=== PATIENT | female | born 1935 | race Caucasian/White ===

== ENCOUNTER → 2017-04-09 08:43 | Outpatient (CLI) | payer MEDICARE, BC ==
[2015-05-22 14:13] VITALS: BMI 33.5
[~2017-04-09 08:43] MED LIST: ALDACTONE25 MG PO; BYSTOLIC20 MG PO; CARDURA4 MG PO; CARDURA8 MG PO; CATAPRES-T1 PATCH.WK TD; CATAPRES0.2 MG PO; LASIX40 MG PO; MINOCIN100 MG PO; MUCINEX600 MG PO; PRINIVIL20 MG PO; ZPAK PO; [UNRECOGNIZED DRUG - OTHER]
== END | disposition home or self-care (01) ==
LOC: D.US 08:30
DX: N18.3 Chronic kidney disease, stage 3 (moderate) (principal)

== ENCOUNTER → 2017-05-22 15:18 | Outpatient (CLI) | payer MEDICARE, BC ==
[2015-05-22 14:13] VITALS: BMI 33.5
== END | disposition home or self-care (01) ==
LOC: D.CT 15:18
DX: R51 Headache (principal)

== ENCOUNTER 2017-11-10 15:55 | Inpatient (IN) | payer MEDICARE, BC ==
[~2017-11-10] VITALS: Ht 176.5 cm; Wt 105.6 kg
--- NOTE | ~2017-11-10 | DS ---
PATIENT:MARSHAL CUNNINGHAM :35 MEDICAL RECORD: [id number] DISCHARGE SUMMARY ADMISSION DATE: 11/10/17 DISCHARGE DATE: 11/13/17 DISCHARGE DIAGNOSES: Acute exacerbation of asthma, bronchitis, febrile illness, hyperkalemia, hypertension, right lower lobe pneumonia. HOSPITAL COURSE: An 82-year-old female with a history of asthma, admitted per the Emergency Room for 48 hours of increasing loss of energy, sputum production that was yellow-green thick and increasing dyspnea. O2 sat was 93% on 2 liters. Chest x-ray showed no acute infiltrates. She was admitted, placed on IV antibiotics, pulmonary toilet, and IV steroids. The patient gradually improved. The urine returned showing greater than 100,000 colony count. Her sats improved. Potassium was replaced to 4.1. Blood cultures were negative for sepsis. Chest x-ray showed persistent blunting of the left costophrenic angle, thought to be a small left pleural effusion versus scar, increase in airspace disease in the right lower lobe concerning for evolving pneumonia. The patient gradually improved, was afebrile, and maintaining her O2 sat 94% on room air. She was discharged in improving condition on 11/13/2017. DISCHARGE MEDICATIONS: Lasix 80 mg b.i.d., doxazosin 8 mg daily, DuoNeb updrafts q. 6 hours and q. 4 hours p.r.n., Aldactone 50 mg at bedtime, Mucinex 600 mg b.i.d., doxycycline 100 mg p.o. b.i.d. for 7 days and discontinue, Flonase nasal spray 2 sprays each nostril daily, gabapentin 100 mg p.o. at bedtime, triamcinolone acetonide lotion to skin rash daily, famotidine 20 mg b.i.d. Ventolin HFA inhaler for p.r.n. rescue. DIET: Low sodium. ACTIVITY: Progress as tolerated. FOLLOWUP: Return to clinic to see me in 1 week with chest x-ray. TRANSINT:[id number] Voice Confirmation ID: [id number] DOCUMENT ID: [id number] RIKI GRIJALVA MD at 0820 CC: [id number] DICTATION DATE: 01/11/18 1238 RN HEMODIALYSIS CHARGE: 01/12/18 0457 DIS IN 11/13/17 [facility] [address] [facility] [address]
--- NOTE | ~2017-11-10 | HP ---
PATIENT: MARSHAL CUNNINGHAM MEDICAL RECORD: [id number] ACCOUNT: [id number] LOCATION:[address] : 35 ADMISSION DATE: 11/10/17 HISTORY AND PHYSICAL EXAMINATION REASON FOR ADMISSION: Fatigue with increasing cough. HISTORY OF PRESENT ILLNESS: The patient is an 82-year-old female with history of asthma and hypertension. She states for the last 2 days, she has just felt fatigued with low-grade fever. She had little energy and stated in bed for the last 48 hours. She had increasing cough and yellow sputum production, came to the Emergency Room for this reason. She complained of generalized weakness and had had upper respiratory tract infection off and on for the last month. She denied chest pain. Upon presentation to the ER, she had temperature of 100.6 was mildly tachypneic. O2 sat was 93% on 2 liters. Her chest x-ray showed no acute infiltrates, but due to symptoms, she was admitted by the ER physician. PAST MEDICAL HISTORY: Asthma; history of KIMBERLY INHIBITOR-induced anaphylaxis, requiring intubation; essential hypertension; chronic dermatitis; chronic renal insufficiency; renal cyst; community-acquired pneumonia, right lower lobe in 2015; history of urinary tract infections; left atrial enlargement; moderate tricuspid and mild aortic insufficiency; IBS; history of negative arteriogram for renal artery stenosis; history of coronary artery disease post-PTCA. FAMILY HISTORY: The parents due to cardiovascular and lung disease. SURGICAL HISTORY: Remote hysterectomy, bilateral hip replacements times 4. ALLERGIES: KIMBERLY INHIBITORS, AVELOX, CLONIDINE, CODEINE, SULFA, PROCARDIA, PENICILLIN, MACROBID, KEFLEX. SOCIAL HISTORY: She is , nonsmoker, nondrinker. MEDICATION LIST: Consistent with DuAnselmob anafts q.6 hours p.r.n. wheezing, Flonase nasal spray 2 sprays each nostril daily, gabapentin 100 mg p.o. at h.s., doxazosin 8 mg daily, furosemide 80 mg q.a.m., triamcinolone acetate lotion to skin rash daily, famotidine 25 mg b.i.d., Ventolin HFA 90 mcg inhaler p.r.n. REVIEW OF SYSTEMS: GENERAL: Fatigued with low-grade fever for 2 days. HEENT: No recent visual change, sinus congestion, or sore throat. RESPIRATORY: She has had cough with yellow-green sputum, not dyspneic per se. No chest pain. CARDIAC: No palpitations, PND, orthopnea. GASTROINTESTINAL: No nausea, vomiting, change in stools or blood per rectum. GENITOURINARY: No incontinence. She has had some mild dysuria. GYNECOLOGIC: No vaginal bleeding. ENDOCRINE: Denies polyuria, polydipsia, heat or cold intolerance. NEUROLOGIC: No history of stroke, TIA, vascular headaches, or seizures. INTEGUMENT: Chronic dermatitis to her lower extremities. Lymphedema unchanged. PHYSICAL EXAMINATION: VITAL SIGNS: Temperature is 100.6 Fahrenheit orally, pulse 92 and regular, respirations are 20, blood pressure 141/64, sat 93% on 2 liters. Height is 5 HISTORY AND PHYSICAL [id number] MARSHAL CUNNINGHAM feet 9 inches, weight of 229 pounds or 103.8 kilos. GENERAL: Alert and oriented, in no acute distress. EYES: Clear. Oropharynx shows somewhat dryness of the mucous membranes. Nose with boggy nasal turbinates are pale. NECK: Supple, without bruits, JVD. CHEST: She has wheezes in the upper lobes, right greater than left on forced expiration. No rales. HEART: Regular rate and rhythm. ABDOMEN: Soft, mildly obese, nontender. EXTREMITIES: Chronic 2+ pretibial edema of the knees. 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 NEUROLOGICAL: Oriented to person, place, and time. Cranial nerves grossly intact. Gait was not tested. LABORATORY WORK: Shows a white count of 17,200, H&H of 14 and 42 respectively. Electrolytes are normal. Anion gap is elevated at 16. BUN and creatinine are 15 and 1.1. GFR is 58. Glucose 120. Bilirubin is 1.55. IMAGING: Chest x-ray shows no acute changes. UA shows 5-10 white and red cells with bacteria. ASSESSMENT: 1. Exacerbation of asthma with bronchitis. 2. Febrile illness. 3. Hypertension. 4. Pyuria. 5. History of CAD. 6. History of left atrial enlargement. 7. Neuropathy. PLAN: The patient is admitted for pulmonary toilet, IV doxycycline currently because of her multiple drug allergies. SHE IS ALSO ALLERGIC TO BIAXIN, which would preclude us using Zithromax at this time. Further workup pending clinical course. Her urine culture was not obtained by the ER physician. I have ordered that despite having one dose of doxycycline. TRANSINT:[id number] Voice Confirmation ID: [id number] DOCUMENT ID: [id number] RIKI GRIJALVA MD at 0735 CC: [id number] DICTATION DATE: 11/11/17 0848 PICKLE SOLUTION MAKER: 11/11/17 0932 ADM [place] [id number] [place] [id number]
[2017-11-10 17:03] LABS: APPEARANCE SLT CLOUDY (CLEAR); BILIRUBIN NEGATIVE (NEGATIVE); COLOR YELLOW (YELLOW); GLUCOSE NEGATIVE (NEGATIVE); KETONE NEGATIVE (NEGATIVE); NITRITE POSITIVE (NEGATIVE); PROTEIN TRACE mg/dL (NEGATIVE); SPECIFIC GRAVITY 1.015 (1.005-1.020); UROBILINOGEN NORMAL (NORMAL)
[2017-11-10 17:04] LABS: RED CELLS - URINE 0-5 /hpf (0-5)
[2017-11-10 17:05] LABS: BACTERIA MODERATE /hpf (NONE SEEN)
[2017-11-10 17:13] LABS: BASOPHILS 0.2 % (0-2); EOSINOPHILS 1.6 % (0-7); HEMATOCRIT 42.2 % (36.0-48.0); HEMOGLOBIN 14.4 g/dL (12-16); IMMATURE GRANULOCYTES 0.3 % (0-5); LYMPHOCYTES 14.8 % (15-50); MCH 33.7 pg (26.0-34.0); MCHC 34.1 g/dL (31.0-37.0); MCV 98.8 fL (80.0-100.0); MEAN PLATELET VOLUME 10.8 fL (7.4-10.4); MONOCYTES 11.6 % (2-11); NEUTROPHILS 71.5 % (40-80); RBC 4.27 10x6/uL (4.00-5.40); RDW 14.1 % (11.5-14.5); WBC 17.2 10x3/uL (4.8-10.8)
[2017-11-10 17:28] LABS: PLATELET COUNT 192 10x3/uL (130-400)
[2017-11-10 17:33] LABS: ALBUMIN 2.9 g/dL (3.4-5.0); ANION GAP 16.1 mmol/L (8-16); BILIRUBIN - TOTAL 1.55 mg/dL (0.2-1.3); CALCIUM 8.9 mg/dL (8.5-10.1); CREATININE - SERUM 1.1 mg/dL (0.6-1.3); POTASSIUM - SERUM 4.1 mmol/L (3.5-5.1); PROTEIN - SERUM 7.1 g/dL (6.4-8.2)
[2017-11-10 20:00] VITALS: BP 175/59
[2017-11-10] MEDS ORDERED: LASIX80 MG PO (20:27)
[2017-11-10] MEDS ORDERED: PROVENTIL/2.5 MG/3 M INH (20:39)
[2017-11-10 23:48] VITALS: Ht 176.5 cm; Wt 105.6 kg
[2017-11-11 08:24] VITALS: BP 141/66
[2017-11-11 12:35] VITALS: BP 119/54
[2017-11-11 15:47] VITALS: BP 123/57
[2017-11-11 20:00] VITALS: BP 115/44
[2017-11-12] VITALS: BP 139/49
[2017-11-12 06:14] LABS: BASOPHILS 0.4 % (0-2); EOSINOPHILS 3.4 % (0-7); HEMATOCRIT 36.1 % (36.0-48.0); HEMOGLOBIN 12.2 g/dL (12-16); IMMATURE GRANULOCYTES 0.2 % (0-5); LYMPHOCYTES 23.2 % (15-50); MCH 33.7 pg (26.0-34.0); MCHC 33.8 g/dL (31.0-37.0); MCV 99.7 fL (80.0-100.0); MEAN PLATELET VOLUME 11.1 fL (7.4-10.4); MONOCYTES 14.2 % (2-11); NEUTROPHILS 58.6 % (40-80); PLATELET COUNT 209 10x3/uL (130-400); RBC 3.62 10x6/uL (4.00-5.40); RDW 14.3 % (11.5-14.5)
[2017-11-12 06:35] LABS: WBC 11.5 10x3/uL (4.8-10.8)
[2017-11-12 06:44] LABS: CALCIUM 8.5 mg/dL (8.5-10.1); CARBON DIOXIDE 24.8 mmol/L (21.0-32.0); POTASSIUM - SERUM 3.8 mmol/L (3.5-5.1)
[2017-11-12 08:40] VITALS: BP 152/71
[2017-11-12 12:48] VITALS: BP 124/70
[2017-11-12 16:15] VITALS: BP 143/56
[2017-11-12 20:04] VITALS: BP 141/82
[2017-11-13 00:37] VITALS: BP 129/69
[2017-11-13 06:21] VITALS: BP 137/66
[2017-11-13 08:50] VITALS: BP 137/70
[2017-11-13 12:03] VITALS: BP 121/47
[2017-11-13 15:28] VITALS: BP 139/47
[2017-11-13] MEDS ORDERED: IPRAT-ALBUT 0.5-3 ML INH (16:39)
[2017-11-13] MEDS ORDERED: MUCINEX600 MG PO (16:39)
[2017-11-13] MEDS ORDERED: VIBRAMYCIN 100100 MG PO (16:45)
[2017-11-13] MEDS ORDERED: GABAPENTIN100 MG PO (16:47)
[2017-11-13] MEDS ORDERED: PEPCID AC20 MG PO (16:47)
[2018-01-12] MEDS ORDERED: ORAPRED ODT10 MG/TAB PO (10:45)
[2018-01-12] MEDS ORDERED: ACETAMINOPHEN500 M1 PO (10:46)
== END 2017-11-13 19:10 | disposition home or self-care (01) | DRG 202 ==
LOC: D.ER 15:55 → D.M2 18:50 → D.EDHOLD 18:50 → D.M2 19:48
PROVIDERS: Emergency Medicine; Family Medicine
DX: J45.901 Unspecified asthma with (acute) exacerbation (principal); N39.0 Urinary tract infection, site not specified; E87.6 Hypokalemia; I12.9 Hypertensive chronic kidney disease with stage 1 through stage 4 chronic kidney disease, or unspecified chronic kidney disease; N18.9 Chronic kidney disease, unspecified; G62.9 Polyneuropathy, unspecified; I25.10 Atherosclerotic heart disease of native coronary artery without angina pectoris; I34.0 Nonrheumatic mitral (valve) insufficiency; L30.9 Dermatitis, unspecified; Z95.5 Presence of coronary angioplasty implant and graft

== ENCOUNTER 2018-01-13 07:00 | Day surgery (SDC) | payer MEDICARE, BC ==
[2018-01-12 12:27] LABS: HEMATOCRIT 46.6 % (36.0-48.0); HEMOGLOBIN 15.8 g/dL (12-16); MCH 34.9 pg (26.0-34.0); MCHC 33.9 g/dL (31.0-37.0); MCV 102.9 fL (80.0-100.0); MEAN PLATELET VOLUME 11.4 fL (7.4-10.4); RBC 4.53 10x6/uL (4.00-5.40); RDW 14.9 % (11.5-14.5); WBC 10.6 10x3/uL (4.8-10.8)
[2018-01-13] VITALS (14 sets, daily range): BP systolic 111–176; BP diastolic 57–88; Ht 175.3 cm; Wt 106.6 kg
[~2018-01-13] VITALS: Ht 175.3 cm; Wt 106.6 kg
--- NOTE | ~2018-01-13 | OP ---
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 SURGEON: Yajaira Laboy MD PROCEDURE: Anterior cervical discectomy and fusion with removal of osteophytes at C5-C6 and C6-C7, anterior cervical plate and screws with [employer] hardware, PEEK interbody cages by bone stem cell, allograft, removal of osteophytes at C5-C6 and C6-C7 with spinal cord decompression. DESCRIPTION AND TECHNIQUE: After induction of general endotracheal anesthesia, the patient was positioned supine on the operating table. Neck was prepped and draped in usual sterile fashion. Fluoroscopic x-ray and freer localized the C5-C6 interspace. Following this, 1:100,000 epinephrine and 1% lidocaine was infiltrated in the subcutaneous tissues. A transverse skin incision was carried out from the midline to the sternocleidomastoid muscle. The platysma was divided with Bovie cautery. Using blunt and sharp dissection with Metzenbaum scissors, I proceeded in avascular plane medial to the carotid sheath. Following this, the C5-C6 and C6-C7 interspace was identified with fluoroscopic x-ray and a spinal needle. The longus colli muscles were elevated by the C5, C6 and C7. Osteophytes were removed anteriorly with Adson rongeurs. Self-retaining retractors were placed deep in longus colli muscles. [place] distracting pins were placed in the bodies of C5, C6 and C7. Each disc space was incised under distraction with a #11 blade. The disc screw was removed with pituitary rongeurs and curettes. A microscope was brought in the field and each interspace offsets were drilled away posteriorly with Midas-Matthias drill under microscopic illumination. The posterior longitudinal ligament was removed with Cloward rongeurs. The endplates were prepared at each level with curettes. A PEEK interbody cage was placed at each interspace under distraction. Prior to this, it was filled with [employer] bone stem cell allograft. A separate anterior cervical plate and screws were used to span C5-C6 and C6-C7 interspaces. A 16 mm screws were placed through the holes of the plate. Locking cams tightened over the screw heads. Good position of the hardware was confirmed with fluoroscopic x-ray. Meticulous hemostasis was maintained throughout the wound. The wound was irrigated with copious amounts of Ancef irrigant solution. The platysma and subdermal layer closed with interrupted 3-0 Vicryl suture. The skin was reapproximated with Steri-Strips and benzoin. A sterile dressing was applied to the wound. The patient was awakened in good condition and taken to recovery. All counts were reported as correct. Estimated blood loss was minimal. TRANSINT:[id number] Voice Confirmation ID: [id number] DOCUMENT ID: [id number] OPERATIVE REPORT [id number] MARSHAL CUNNINGHAM JOHN MD at 1555 CC: [id number] DICTATION DATE: 01/27/18 1254 ENTRY LEVEL CIVIL ENGINEER: 01/27/18 1331 [facility] 01/14/[address] [address]
[~2018-01-13 07:00] MED LIST changes: +ACETAMINOPHEN500 M1 PO; +GABAPENTIN100 MG PO; +IPRAT-ALBUT 0.5-3 ML INH; +LASIX80 MG PO; +ORAPRED ODT10 MG/TAB PO; +PEPCID AC20 MG PO; +PROVENTIL/2.5 MG/3 M INH; +VIBRAMYCIN 100100 MG PO
[2018-01-14] VITALS (20 sets, daily range): BP systolic 106–154; BP diastolic 41–78
== END 2018-01-14 19:00 | disposition home or self-care (01) ==
LOC: D.CVICU 07:00 → D.OPS 07:00 → D.PAN 09:15 → D.CVICU 15:12 → D.OPS 01-14 19:00
PROVIDERS: Anesthesiology
DX: M25.78 Osteophyte, vertebrae (principal)

== ENCOUNTER → 2018-03-16 07:35 | Outpatient (CLI) | payer MEDICARE, BC ==
[2018-01-13 16:53] VITALS: BMI 34.3
== END | disposition home or self-care (01) ==
LOC: D.MRI 07:35
DX: M54.16 Radiculopathy, lumbar region (principal)

== ENCOUNTER → 2019-05-20 16:14 | Outpatient (CLI) | payer MEDICARE, BC ==
[2018-01-13 16:53] VITALS: BMI 34.3
== END | disposition home or self-care (01) ==
LOC: D.LABREF 16:14
PROVIDERS: ATTEND Otolaryngology
DX: J32.0 Chronic maxillary sinusitis (principal)

== ENCOUNTER 2019-08-16 06:34 | Day surgery (SDC) | payer MEDICARE, BC ==
--- NOTE | 2019-08-13 12:49 | HP ---
PATIENT: MARSHAL CUNNINGHAM MEDICAL RECORD: [id number] ACCOUNT: [id number] [facility] ADMISSION DATE: 08/16/19 PCP: RIKI GRIJALVA MD HISTORY AND PHYSICAL EXAMINATION HISTORY OF PRESENT ILLNESS: Ms. Cunningham is an 84-year-old female. She has a chronic pansinusitis with a staph growing on cultures. She has been treated repeatedly with antibiotics. She has had surgery in the past. She has a cervical fusion pending, I believe, and I want to get her clear from staff because of the risks of infection associated with that chronic infection. We have discussed issues with infectious disease and planned to do a surgery with antibiotics afterwards. She has been admitted for sinus surgery. PAST MEDICAL HISTORY: Includes hypertension, coronary artery disease, reactive airway disease. PAST SURGICAL HISTORY: Includes a cervical fusion in 2018, hip replacement in 2001, multiple revisions. ALLERGIES: SHE LISTS ALLERGIES TO MOST ANTIBIOTICS, ALTHOUGH SHE SAYS SHE CAN TAKE CLINDAMYCIN AND DOXYCYCLINE, WHILE THE CLINDAMYCIN GIVES A LOT OF TROUBLE. SHE ALSO HAS ALLERGIES TO AVAPRO, NORVASC, ANTI-INFLAMMATORY MEDICATIONS WELL. CURRENT MEDICATIONS: Include spironolactone, bumetanide, doxazosin, Singulair, ipratropium, fluticasone, Trelegy. PHYSICAL EXAMINATION: GENERAL: She is alert and oriented. She is a good historian. FACE: Normal, symmetric, no lesions. EYES: Sclerae and conjunctivae are normal. EARS: Canals and TMs normal. NOSE: No mass, polyps or drainage. ORAL CAVITY AND OROPHARYNX: Palate is normal. NECK: No masses, no adenopathy. CHEST: Clear. IMPRESSION: Chronic pansinusitis. PLAN: Bilateral endoscopic middle meatal antrostomy, sphenoidotomy, ethmoidectomy and frontal sinusotomies, irrigation, cultures so she can proceed with antibiotic treatment. TRANSINT:[id number] Voice Confirmation ID: [id number] DOCUMENT ID: [id number] HISTORY AND PHYSICAL [id number] NICOLÁSAMADOUANUMMARSHALYAHAIRA SMITH MD at 1249 CC: [id number] DICTATION DATE: 08/12/19 1416 OVERHEAD CLEANER MAINTAINER: 08/12/19 [address] [place] [id number] [place] [id number]
[~2019-08-16] VITALS: Ht 175.3 cm; Wt 104.3 kg
--- NOTE | ~2019-08-16 | OP ---
PATIENT NAME: MARSHAL CUNNINGHAM MEDICAL RECORD: [id number] :35 [facility] DATE: SURGEON: VIJAY JONES MD DATE OF OPERATION: 08/16/2019 PREOPERATIVE DIAGNOSIS: Bilateral chronic pansinusitis. POSTOPERATIVE DIAGNOSIS: Bilateral chronic pansinusitis. PROCEDURES: Bilateral frontal sinusotomy, bilateral middle meatal antrostomy, bilateral ethmoidectomy and sphenoidotomy, endoscopic. SURGEON: Vijay Jones MD ANESTHESIA: General orotracheal. BLOOD LOSS: Less than 5 cc. SPECIMENS: Cultures. COMPLICATIONS: None. DISPOSITION: Recovery stable. PROCEDURE NOTE: She was brought to the operating room and placed in supine position, sedated and intubated by anesthesia. The table was turned 90 degrees. A drape was applied. She was positioned for sinus surgery. Using a headlight and nasal speculum, both sides of the nose were examined. The root of the middle turbinate, uncinate, and lateral nasal wall injected with a total of 1 mL of 1% lidocaine with 1:100,000 epinephrine. Afrin pledgets were placed, 2 in each side of the nose. She was positioned, prepped and draped in usual fashion for sinus surgery. Using 0-degree scope and a straight biting forceps, all Afrin pledgets were removed from both sides of the nose. Both sides of the nose were examined. The inferior turbinates were normal. We outfractured slightly with a Ocean elevator to allow better visualization. The middle turbinates were more normal and middle meatus was normal. The superior nasal vault was normal. On the left side, I was able to easily see the sphenoid ostia, which was clear. There was some drainage from the posterior ethmoids on the left side, got some cultures of that. The right side inferior turbinate was normal. Middle turbinate, middle meatus were normal. Ostia was not visible. The nasal vault and superior meatus was normal. Then, the sphenoid ostia was not quite visible just can see a crust there, little dimple at the sphenoid ostia. I was able use a 7 suction and entered the sphenoid ostia, it was completely clear, normal. Operative suction into the left sphenoid ostium was clear and normal aerated with no obvious mucosal edema or drainage at all. They are on either side and then used a long curved thin olive tip suction up into the frontal sinus duct on both sides which was easily cannulated and clear and suctioned it. There was no visible drainage. Then on both sides with a small curved olive tip suction entered the maxillary sinus, open that somewhat with a backbiting forceps and again both sinuses appeared completely clean. Suction all around in the sinus. No drainage or anything and just some mucosal thickening. The ethmoid sinuses are opened up the microdebrider. A little bit of purulence in the ethmoid on the left side, but not very much and just some thick mucosal chronically inflamed mucosal changes. Once everything was completely open, really was not much in the way of drainage polyps or anything of that nature. Suction 30 mL OPERATIVE REPORT [id number] MARSHAL CUNNINGHAM syringe were used to irrigate the sinuses both left and right sphenoid repeatedly both maxillary sinuses repeatedly ethmoid repeatedly and the frontal sinus ducts repeatedly with 30 mL syringe of saline on both sides over and over on both sides. Everything was completely clear. There was really almost no bleeding and then 10 mL syringe with mupirocin in a different suctions were used to put some mupirocin in all of the sinuses. Once that was completed, she was examined. The eyes were examined. Oral cavity and pharynx was suctioned. There was really no significant bleeding or drainage. There was no nasal packing. She was awakened, extubated, and transported to recovery in good condition. No complications. TRANSINT:[id number] Voice Confirmation ID: [id number] DOCUMENT ID: [id number] VIJAY JONES MD CC: [id number] DICTATION DATE: 08/16/19 1229 WELDER TACK: 08/16/19 190 [facility] 08/16/19 [facility] [address] [place] [id number]
[~2019-08-16 06:34] MED LIST changes: +OTC DIURETIC PO
[2019-08-16 07:17] LABS: ANION GAP 12.6 mmol/L (8-16); CARBON DIOXIDE 26.9 mmol/L (21.0-32.0); CREATININE - SERUM 1.1 mg/dL (0.6-1.3); POTASSIUM - SERUM 3.5 mmol/L (3.5-5.1)
[2019-08-16 07:21] LABS: BASOPHILS 0.5 % (0-2); EOSINOPHILS 2.5 % (0-7); HEMATOCRIT 41.5 % (36.0-48.0); IMMATURE GRANULOCYTES 0.1 % (0-5); LYMPHOCYTES 43.8 % (15-50); MCH 32.8 pg (26.0-34.0); MCHC 33.7 g/dL (31.0-37.0); MCV 97.2 fL (80.0-100.0); MEAN PLATELET VOLUME 11.7 fL (7.4-10.4); MONOCYTES 10.1 % (2-11); PLATELET COUNT 177 10x3/uL (130-400); RBC 4.27 10x6/uL (4.00-5.40); RDW 14.5 % (11.5-14.5); WBC 9.6 10x3/uL (4.8-10.8)
[2019-08-16 08:55] VITALS: BP 137/71; Ht 175.3 cm; Wt 104.3 kg
== END 2019-08-16 14:30 | disposition home or self-care (01) ==
LOC: D.OPS 06:34 → D.PAN 08:50 → D.OPS 09:00 → D.PAN 09:00 → D.OPS 09:15 → D.PAN 09:15 → D.OPS 09:30
PROVIDERS: Anesthesiology; ATTEND Otolaryngology
DX: J32.4 Chronic pansinusitis (principal); I10 Essential (primary) hypertension; I25.10 Atherosclerotic heart disease of native coronary artery without angina pectoris; J45.909 Unspecified asthma, uncomplicated

== ENCOUNTER → 2019-10-06 11:07 | Outpatient (CLI) | payer MEDICARE, BC ==
[2019-08-16 08:55] VITALS: BMI 34.0
== END | disposition home or self-care (01) ==
LOC: D.MRI 11:07
PROVIDERS: ATTEND Family Medicine
DX: M54.41 Lumbago with sciatica, right side (principal)

== ENCOUNTER 2019-11-07 12:27 | Emergency (ER) | payer MEDICARE, BC ==
[~2019-11-07] VITALS: Ht 175.3 cm; Wt 104.5 kg
[2019-11-07 12:28] VITALS: Ht 175.3 cm; Wt 104.5 kg
[2019-11-07] MEDS ORDERED: ALDACTONE25 MG (12:30)
[2019-11-07] MEDS ORDERED: HYDROCODON-ACE1 EA10 PO (15:05)
[2019-11-07 15:35] VITALS: BP 147/73
== END 2019-11-07 15:35 | disposition home or self-care (01) ==
LOC: D.ER 12:27
DX: M48.061 Spinal stenosis, lumbar region without neurogenic claudication (principal); M54.5 Low back pain; G89.29 Other chronic pain; I10 Essential (primary) hypertension; J45.909 Unspecified asthma, uncomplicated

== ENCOUNTER → 2019-11-16 12:19 | Outpatient (CLI) | payer MEDICARE, BC ==
[2019-11-07 12:28] VITALS: BMI 34.0
[~2019-11-16 12:19] MED LIST changes: +ALDACTONE25 MG; +HYDROCODON-ACE1 EA10 PO
== END | disposition home or self-care (01) ==
LOC: D.LABREF 12:19
PROVIDERS: ATTEND Internal Medicine Pulmonary Disease
DX: Z11.59 Encounter for screening for other viral diseases (principal)

== ENCOUNTER → 2019-11-19 10:00 | Day surgery (SDC) | payer MEDICARE, BC ==
[2019-11-07 12:28] VITALS: Ht 175.3 cm; Wt 104.3 kg
[2019-11-16 10:19] LABS: BASOPHILS 0.2 % (0-2); EOSINOPHILS 0.5 % (0-7); HEMATOCRIT 37.8 % (36.0-48.0); HEMOGLOBIN 12.3 g/dL (12-16); IMMATURE GRANULOCYTES 0.3 % (0-5); LYMPHOCYTES 20.8 % (15-50); MCH 31.8 pg (26.0-34.0); MCHC 32.5 g/dL (31.0-37.0); MCV 97.7 fL (80.0-100.0); MEAN PLATELET VOLUME 9.3 fL (7.4-10.4); MONOCYTES 10.4 % (2-11); NEUTROPHILS 67.8 % (40-80); RBC 3.87 10x6/uL (4.00-5.40); RDW 15.1 % (11.5-14.5); WBC 14.8 10x3/uL (4.8-10.8)
[2019-11-16 10:23] LABS: PLATELET COUNT 444 10x3/uL (130-400)
[2019-11-16 10:30] LABS: CARBON DIOXIDE 25.5 mmol/L (21.0-32.0); CREATININE - SERUM 1.4 mg/dL (0.6-1.3); POTASSIUM - SERUM 4.5 mmol/L (3.5-5.1)
[~2019-11-19] VITALS: Ht 175.3 cm; Wt 104.3 kg
== END | disposition home or self-care (01) ==
LOC: D.OPS 10:00 → D.PAN 11:45 → D.OPS 11:45
PROVIDERS: Anesthesiology; ATTEND Neurological Surgery
DX: M54.16 Radiculopathy, lumbar region (principal); M53.80 Other specified dorsopathies, site unspecified; Z53.9 Procedure and treatment not carried out, unspecified reason

== ENCOUNTER 2019-12-10 05:45 | Day surgery (SDC) | payer MEDICARE, BC ==
[2019-12-08 13:09] LABS: BASOPHILS 0.5 % (0-2); EOSINOPHILS 2.3 % (0-7); HEMATOCRIT 37.7 % (36.0-48.0); HEMOGLOBIN 12.1 g/dL (12-16); IMMATURE GRANULOCYTES 0.2 % (0-5); LYMPHOCYTES 31.7 % (15-50); MCH 31.3 pg (26.0-34.0); MCHC 32.1 g/dL (31.0-37.0); MCV 97.7 fL (80.0-100.0); MEAN PLATELET VOLUME 9.8 fL (7.4-10.4); MONOCYTES 8.2 % (2-11); NEUTROPHILS 57.1 % (40-80); PLATELET COUNT 418 10x3/uL (130-400); RBC 3.86 10x6/uL (4.00-5.40); RDW 16.3 % (11.5-14.5); WBC 10.7 10x3/uL (4.8-10.8)
[2019-12-08 13:26] LABS: ANION GAP 12.8 mmol/L (8-16); CALCIUM 8.7 mg/dL (8.5-10.1); CARBON DIOXIDE 24.8 mmol/L (21.0-32.0); CREATININE - SERUM 1.2 mg/dL (0.6-1.3); POTASSIUM - SERUM 3.6 mmol/L (3.5-5.1)
[~2019-12-10] VITALS: Ht 175.3 cm; Wt 102.3 kg
[~2019-12-10 05:45] MED LIST changes: -ALDACTONE25 MG; +NARCAN INH; +PROAIR HFA8.5 G1 INH; +SINGULAIR10 MG PO
[2019-12-10 06:41] VITALS: BP 148/74; Ht 175.3 cm; Wt 102.3 kg
[2019-12-10] MEDS ORDERED: BUMETANIDE0.5 MG PO (06:41)
--- NOTE | 2019-12-10 10:36 | NUR ---
1037 C/O MILD NAUSEA NOTED. DENIES PAIN. PT ON RA EYES CLOSED BUT EASY TO ARROUSE
--- NOTE | 2019-12-10 17:52 | NUR ---
1345 PT NOW ABLE TO VOID. NO C/O. PT MANAGED. IV D/C'D WITH CANNULA INTACT. DISCHARGE INSTRUCTIONS GIVEN.
== END 2019-12-10 13:55 | disposition home or self-care (01) ==
LOC: D.OPS 05:45
PROVIDERS: Anesthesiology; ATTEND Neurological Surgery
DX: M54.16 Radiculopathy, lumbar region (principal); M53.86 Other specified dorsopathies, lumbar region

== ENCOUNTER → 2020-02-10 17:37 | Outpatient (CLI) | payer MEDICARE, BC ==
[2019-12-10 06:41] VITALS: BMI 33.3
[~2020-02-10 17:37] MED LIST changes: +BUMETANIDE0.5 MG PO
== END | disposition home or self-care (01) ==
LOC: D.LABREF 17:37
PROVIDERS: ATTEND Orthopaedic Surgery
DX: M17.11 Unilateral primary osteoarthritis, right knee (principal)

== ENCOUNTER 2020-02-14 13:22 | Inpatient (IN) | payer MEDICARE, BC ==
[~2020-02-14] VITALS: Ht 175.3 cm; Wt 102.1 kg
[2020-02-29] MEDS ORDERED: PREDNISONE10 MG PO (12:21)
[2020-03-01] MEDS ORDERED: CARDURA8 MG PO (08:49)
[2020-03-01 09:43] LABS: ANION GAP 10.1 mmol/L (8-16); CARBON DIOXIDE 25.9 mmol/L (21.0-32.0); CREATININE - SERUM 1.2 mg/dL (0.6-1.3)
[2020-03-01 09:46] LABS: BASOPHILS 0.5 % (0-2); EOSINOPHILS 0.9 % (0-7); HEMATOCRIT 42.3 % (36.0-48.0); HEMOGLOBIN 13.8 g/dL (12-16); IMMATURE GRANULOCYTES 0.3 % (0-5); LYMPHOCYTES 22.1 % (15-50); MCH 32.6 pg (26.0-34.0); MCHC 32.6 g/dL (31.0-37.0); MEAN PLATELET VOLUME 11.2 fL (7.4-10.4); NEUTROPHILS 65.2 % (40-80); RBC 4.23 10x6/uL (4.00-5.40); RDW 13.9 % (11.5-14.5); WBC 10.1 10x3/uL (4.8-10.8)
[2020-03-01 09:48] LABS: APTT 24.4 SECONDS (22.8-39.4); INR 0.98 (0.85-1.17)
[2020-03-01 10:01] LABS: PLATELET COUNT 190 10x3/uL (130-400)
[2020-03-01 10:44] LABS: BILIRUBIN NEGATIVE (NEGATIVE); KETONE NEGATIVE (NEGATIVE); NITRITE POSITIVE (NEGATIVE); UROBILINOGEN NORMAL mg/dL (< 2)
[2020-03-01 10:45] LABS: EPITHELIAL CELLS 0-5 /hpf (0-5); WHITE CELLS - URINE >50 HPF (0-4)
[2020-03-01 10:46] LABS: BACTERIA MODERATE /HPF (NONE SEEN)
[2020-03-07] VITALS (9 sets, daily range): BP systolic 132–158; BP diastolic 58–87; BMI 34.0; BMI 33.3
[2020-03-07] MEDS ORDERED: DOXYCYCLINE HY100 M2 PO (11:16)
--- NOTE | 2020-03-07 13:06 | NUR ---
CAUTERY PAD PLACED ON ABDOMENT. PLASMA BLADE USED ON SETTING 6/8. AQUAMANTIS USED SETTING ON 170. CAUTERY PAD LOT#[id number] EXP. 10/23/2021
--- NOTE | 2020-03-07 14:59 | NUR ---
KATHY STATES HER PAIN IS NOW A 5 BUT DOES NOT WANT PAIN MEDICINE OF RIGHT NOW. STATES "IT IS TOLERABLE"
--- NOTE | 2020-03-07 15:29 | NUR ---
PATIENT ADMITTED TO ROOM 2207. ADMISSION COMPLETE. VITALS STABLE. REQUESTED AND GIVEN ICE WATER. BED ALARM ON. DENIES NEEDS. AT BEDSIDE. EDUCATION PROVIDED TO CALL FOR ASSIST. WILL CONTINUE TO MONITOR.
--- NOTE | 2020-03-07 16:20 | NUR ---
ATTEMTPED TO PLACE PATIENT ON CPM. PATIENT SCREAMING IN PAIN WHEN MACHINE RUNNING. GIVEN PRN NORCO. WILL ATTEMPT AGAIN IN 30MINUTES.
--- NOTE | 2020-03-07 16:50 | NUR ---
CPM TURNED BACK ON AND PATIENT TOLERATING.
--- NOTE | 2020-03-07 18:25 | MORECARE ---
CASE MANAGEMENT DISCHARGE SUMMARY PATIENT: MARSHAL CUNNINGHAM UNIT: [id number] ADM DATE: 03/07/20 AGE: 84 : 35 SEX: F ROOM/BED: D.1207 AUTHOR: ORLANDO MORENO PHYSICIAN: REFERRING PHYSICIAN: CINTHYA BOLIVAR DO DATE OF SERVICE: 03/07/20 Discharge Plan Patient Name: MARSHAL CUNNINGHAM Facility: [facility]:[place] : 1935 Planned Disposition: Outpatient PT\OT Anticipated Discharge Date: Discharge Date: Expected LOS: Initial Reviewer: [email or web address] Initial Review Date: 03/07/2020 Generated: 03/07/20 7:25 pm Patient Name: MARSHAL CUNNINGHAM Page [id number] at 1825 All edits/amendments must be made on the electronic document DICTATION DATE: 03/07/201824 MANAGER STORY: RENÉ 03/07/201824 RPT#: [id number] DC DATE: STATUS: ADM IN [facility] [address] [place] [address] END OF REPORT
--- NOTE | 2020-03-07 18:38 | MORECARE ---
CASE MANAGEMENT DISCHARGE SUMMARY PATIENT: MARSHAL CUNNINGHAM UNIT: [id number] ADM DATE: 03/07/20 AGE: 84 : 35 SEX: F ROOM/BED: D.1207 AUTHOR: ORLANDO MORENO PHYSICIAN: REFERRING PHYSICIAN: CINTHYA BOLIVAR DO DATE OF SERVICE: 03/07/20 Discharge Plan Patient Name: MARSHAL CUNNINGHAM Facility: [facility]:[place] : 1935 Planned Disposition: Outpatient PT\OT Anticipated Discharge Date: Discharge Date: Expected LOS: Initial Reviewer: [email or web address] Initial Review Date: 03/07/2020 Generated: 03/07/20 7:38 pm DCP- Discharge Planning Updated by [email or web address]: Gricel Pham on 03/07/20 5:[address] CM met with patient to discuss initial discharge planning. Patient is in agreement to proceed. Patient reports that she lives at home independently with her , Erick Cunningham [phone]. Patient is alert/oriented. PCP: Dr. Rodgers. Emergency contact: Charisse Buitrago (friend) [phone]. [facility] HHS: None. DME: Walker, YAKELIN, BSC (to be delivered).Patient's choice for Therapy is at [facility] [phone]), with Dr. Rodgers office. Patient is Independent with all ADL's, medication management TECHNICAL RECRUITER. CM discussed the availability of HH, Rehab, SNF, OP Therapy, DME services. Patient states she feels safe returning to previous environment. Patient denies hospitalization within the past 30 days. Patient denies the use of community resources TECHNICAL RECRUITER. Transportation at time of discharge: Friend or spouse. CM will follow and assist with DC needs/plans PRN. CM will contact Therapy 03/08. Last DP export: 03/07/20 5:25 p Patient Name: MARSHAL CUNNINGHAM Page [id number] at 1838 All edits/amendments must be made on the electronic document DICTATION DATE: 03/07/201837 PLUMBER'S ASSISTANT: RENÉ 03/07/201837 RPT#: [id number] DC DATE: STATUS: ADM IN [facility] [address] [place] [address] END OF REPORT
--- NOTE | 2020-03-07 19:30 | NUR ---
PATIENT RESTING IN BED WITH NO S/S OF DISTRESS AND DENIES NEEDS AT THIS TIME. BED IN LOWEST POSITION AND CALL LIGHT WITHIN REACH. ENCOURAGED THE PATIENT TO CALL IF SHE HAS NEEDS. WILL CONTINUE TO MONITOR.
--- NOTE | 2020-03-07 20:25 | NUR ---
ADMINISTERED MEDS PER ORDERS. PATIENT DENIES OTHER NEEDS. WILL CONTINUE TO MONITOR.
--- NOTE | 2020-03-07 23:23 | NUR ---
REDNESS AND PAIN NOTED AT IV SITE. REMOVED PIV FROM PATIENT'S LEFT ARM. RESITED PATIENT TO RIGHT AC WITH A 20G ON THE SECOND ATTEMPT.
[2020-03-08 04:26] VITALS: BP 116/56
--- NOTE | 2020-03-08 05:30 | NUR ---
PLACED PATIENT ON CPM TO RIGHT KNEE
[2020-03-08 07:22] LABS: HEMATOCRIT 38.4 % (36.0-48.0); HEMOGLOBIN 12.2 g/dL (12-16); MCH 32.1 pg (26.0-34.0); MCHC 31.8 g/dL (31.0-37.0); MCV 101.1 fL (80.0-100.0); MEAN PLATELET VOLUME 11.3 fL (7.4-10.4); RBC 3.8 10x6/uL (4.00-5.40)
--- NOTE | 2020-03-08 08:00 | NUR ---
PT RESTING IN BED WITH EYES OPEN CALL LIGHT IN REACH WILL MONITER
--- NOTE | 2020-03-08 08:57 | OP ---
PATIENT NAME: MARSHAL CUNNINGHAM MEDICAL RECORD: [id number] :35 LOCATION:D. D.1207 ADMISSION DATE:03/07/20 SURGEON: MYKEL BOLIVAR DO DATE OF OPERATION: 03/07/2020 PROCEDURE PERFORMED: Right total knee arthroplasty. PREOPERATIVE DIAGNOSIS: Right knee osteoarthritis. POSTOPERATIVE DIAGNOSIS: Right knee osteoarthritis. INDICATIONS: Ms. Cunningham is an 84-year-old female, who has had right knee pain for quite some time. She is tired of dealing with it. She has tried all manner of nonoperative treatment for the pain and is affecting her activities of daily living. She wanted something done surgically. She is aware of the risks including infection, bleeding, damage to nerves and vessels, need for further surgery, continued pain, loss of motion, failure of implants, fracture, blood clots, and even and she signed the consent. SURGEON: Mykel Bolivar DO DESCRIPTION OF PROCEDURE: The patient received a block by anesthesia in the preoperative area and was given 1.5 grams of vancomycin preoperatively and a gram of TXA. She was then taken to the operative suite, laid in supine position, given general anesthetic and LMA was placed. The right lower extremity was then prepped and draped in sterile fashion. Timeout was performed. Everyone was in agreement with the correct site, side, patient, and procedure. I then began by marking out the incision over the anterior knee and covered in Ioban and then used a 10 blade scalpel, made careful dissection down to the capsule and then used a fresh 10 blade to the medial parapatellar approach through the capsule and everted the patella and removed part of the fat pad. Then, I calibered, measured and nailed down the patella for implant. The ACL was then removed and I entered the femoral canal with a drill and intramedullary guide for the distal femur was put on. I then cut the distal femur through the guide and exposed the proximal tibia and cut the proximal tibia through the guide, then removed the excess bone and the menisci. The knee was then brought to extension and 10 extension block fit well. I then flexed the knee up and measured the femur to be a 67.5. I then used the 4-in-1 cutting block and I used an Konrad wing to ensure there is no notching, and cut the distal femur through the 4-in-1 cutting block. Once that was done, I put the femoral trial on and then ranged the knee after putting in a tibial tray with the poly and marked the rotation of the poly. We then drilled for the patella and lug holes on the femur. I then exposed the tibia, sized it to be 75, and reamed and punched it and extra holes in the tibia. The cement was then mixed and the tibia was irrigated out. I then put cement in the tibia and on the implant and packed the implant on and removed excess cement. I then impacted the femur on and I then placed the poly in between and brought the knee into extension, cleaned out the patella, put in cement on the patella and on the implant and squeezed it on. I removed the excess cement from that. I then put 10% povidone-iodine with 500 mL of normal saline solution in the knee and let it sit for 3 minutes, I irrigated out with a liter of normal saline. We then sized and a 12 poly fit the best. We put in E poly anterior stabilized and locked it into place, had good stability to varus valgus stress in extension and flexion and mid flexion. I then put in the Ree and vancomycin and tobramycin powder and closed the capsule with #1 Vicryl popoffs in wobreo-ix-sgnwy fashion. This OPERATIVE REPORT [id number] MARSHAL CUNNINGHAM was done by myself and Beth Reeves, certified operating room surgical technician. Beth then finished the capsule as well and did the skin with 2-0 Vicryl in inverted interrupted fashion and put a ZipLine, Adaptic, 4 x 4s, ABD, Webril, Everett wrap on the knee, and ADRIANA stocking on the knee. She was awakened and taken to recovery in stable condition. Blood loss was approximately 200 mL. COMPLICATIONS: None. TRANSINT:[id number] Voice Confirmation ID: [id number] DOCUMENT ID: [id number] MYKEL BOLIVAR DO at 0857 CC: [id number] DICTATION DATE: 03/07/20 1405 PAD HAND: 03/07/20 2237 ADM IN [facility] [address] [place] [address]
--- NOTE | 2020-03-08 09:00 | NUR ---
PT CPM TAKEN OFF
[2020-03-08 09:46] VITALS: Ht 175.3 cm; Wt 102.1 kg
[2020-03-08 10:17] VITALS: BP 122/45
--- NOTE | 2020-03-08 17:30 | MORECARE ---
CASE MANAGEMENT DISCHARGE SUMMARY PATIENT: MARSHAL CUNNINGHAM UNIT: [id number] ADM DATE: 03/07/20 AGE: 84 : 35 SEX: F ROOM/BED: D.1207 AUTHOR: TIFFANIE,ORLANDO PHYSICIAN: REFERRING PHYSICIAN: CINTHYA BOLIVAR DO DATE OF SERVICE: 03/08/20 Discharge Plan Patient Name: MARSHAL CUNNINGHAM Facility: [facility]:[place] : 1935 Planned Disposition: Outpatient PT\OT Anticipated Discharge Date: Discharge Date: Expected LOS: Initial Reviewer: [email or web address] Initial Review Date: 03/07/2020 Generated: 03/08/20 6:30 pm Comments DCP- Discharge Planning Updated by [email or web address]: Gricel Pham on 03/08/20 4:[address] CM revisited patient to verify that she still wanted to have OP Therapy at [facility]. DCP- Discharge Planning Updated by [email or web address]: Gricel Pham on 03/07/20 5:[address] CM met with patient to discuss initial discharge planning. Patient is in agreement to proceed. Patient reports that she lives at home independently with her , Erick Cunningham [phone]. Patient is alert/oriented. PCP: Dr. Rodgers. Emergency contact: Charisse Buitrago (friend) [phone]. [facility] HHS: None. DME: Walker, CPM, BSC (to be delivered).Patient's choice for Therapy is at [facility] ([phone]), with Dr. Rodgers office. 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 CM discussed the availability of HH, Rehab, SNF, OP Therapy, DME services. Patient states she feels safe returning to previous environment. Patient denies hospitalization within the past 30 days. Patient denies the use of community resources MECHANIC. Transportation at time of discharge: Friend or spouse. CM will follow and assist with DC needs/plans PRN. CM will contact Therapy 03/08. Coverage Notice Reviewer: [email or web address] Adam Pham Notice Issued Date-Time: 03/08/2020 17:11 Notice Type: Patient Choice Letter Notice Delivered To: Patient Relationship to Patient: Self Fiberglasser Name: Marshal Cunningham Delivery Method: HAND - Hand Delivered Shayy Days: Prior Verbal Notification: Recipient Understood Notice: Yes Recipient Signature: Yes Med Rec Note Co-signed by Attending: Coverage Notice Comment: [facility] Last DP export: 03/07/20 5:38 p Patient Name: MARSHAL CUNNINGHAM Page [phone] at 1730 All edits/amendments must be made on the electronic document DICTATION DATE: 03/08/201729 LABORER STORES: RENÉ 03/08/201729 RPT#: [id number] DC DATE: STATUS: ADM IN [facility] [address] [place] [address] END OF REPORT
--- NOTE | 2020-03-08 18:00 | NUR ---
PT RESTING IN BED WITH EYES OPEN CALL LIGHT IN REACH WILL MONITER
[2020-03-08 19:51] VITALS: BP 113/41
--- NOTE | 2020-03-08 20:00 | NUR ---
ALERT RESTING IN BED, SEE SHIFT ASSESSMENT, CPM IN USE, DENIES NEEDS AT THIS TIME, CALL LIGHT IN REACH
[2020-03-08 23:12] LABS: BILIRUBIN NEGATIVE (NEGATIVE); KETONE NEGATIVE (NEGATIVE); NITRITE POSITIVE (NEGATIVE); UROBILINOGEN NORMAL mg/dL (< 2)
[2020-03-08 23:13] LABS: BACTERIA MODERATE HPF (NONE SEEN); EPITHELIAL CELLS 0-5 /hpf (0-5); WHITE CELLS - URINE 0-5 HPF (0-4)
[2020-03-09 04:37] VITALS: BP 131/51
--- NOTE | 2020-03-09 07:15 | NUR ---
PT RESTING QUIETLY IN BED WITH EYES CLOSED. OPENS EYES SPONTANEOUSLY STAFF ENTERS ROOM. RESP EVEN AND UNLABORED. PT REPORTS PAIN 5/10 AT THIS TIME. DRESSING TO RIGHT LOWER EXTREMITY C/D/I. CPM IN PLACE AND IN USE. PT SCARLETT WELL. DENIES FURTHER NEEDS AT THIS TIME. CL WITHIN REACH. ENCOURAGED TO CALL WITH NEEDS. CONTINUE POC
[2020-03-09 08:20] LABS: HEMATOCRIT 35.1 % (36.0-48.0); HEMOGLOBIN 11.5 g/dL (12-16); MCHC 32.8 g/dL (31.0-37.0); MCV 100.6 fL (80.0-100.0); MEAN PLATELET VOLUME 11.6 fL (7.4-10.4); RBC 3.49 10x6/uL (4.00-5.40); RDW 14.1 % (11.5-14.5); WBC 11.7 10x3/uL (4.8-10.8)
[2020-03-09 08:38] VITALS: BP 113/45
[2020-03-09 08:39] LABS: ANION GAP 12.5 mmol/L (8-16); CARBON DIOXIDE 23.2 mmol/L (21.0-32.0); CREATININE - SERUM 1.6 mg/dL (0.6-1.3); POTASSIUM - SERUM 4.7 mmol/L (3.5-5.1)
[2020-03-09 11:39] VITALS: BP 115/57
--- NOTE | 2020-03-09 11:56 | MORECARE ---
CASE MANAGEMENT DISCHARGE SUMMARY PATIENT: MARSHAL CUNNINGHAM UNIT: [id number] ADM DATE: 03/07/20 AGE: 84 : 35 SEX: F ROOM/BED: D.1207 AUTHOR: TIFFANIE,ORLANDO PHYSICIAN: REFERRING PHYSICIAN: CINTHYA BOLIVAR DO DATE OF SERVICE: 03/09/20 Discharge Plan Patient Name: MARSHAL CUNNINGHAM Facility: [facility]:[place] : 1935 Planned Disposition: Outpatient PT\OT Anticipated Discharge Date: 03/09/20 Discharge Date: Expected LOS: 2 Initial Reviewer: [email or web address] Initial Review Date: 03/07/2020 Generated: 03/09/20 12:55 pm Comments DCP- Discharge Planning Updated by [email or web address]: Gricel Pham on 03/08/20 4:[address] CM revisited patient to verify that she still wanted to have OP Therapy at [facility]. DCP- Discharge Planning Updated by [email or web address]: Gricel Pham on 03/07/20 5:[address] CM met with patient to discuss initial discharge planning. Patient is in agreement to proceed. Patient reports that she lives at home independently with her , Erick Cunningham [phone]. Patient is alert/oriented. PCP: Dr. Rodgers. Emergency contact: Charisse Buitrago (friend) [phone]. Pharmacy: [place] [id number]. HHS: None. DME: Walker, CPM, BSC (to be delivered).Patient's choice for Therapy is at [facility] ([phone]), with Dr. Rodgers office. 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 CM discussed the availability of HH, Rehab, SNF, OP Therapy, DME services. Patient states she feels safe returning to previous environment. Patient denies hospitalization within the past 30 days. Patient denies the use of community resources HEALTH INSURANCE SPECIALIST. Transportation at time of discharge: Friend or spouse. CM will follow and assist with DC needs/plans PRN. CM will contact Therapy 03/08. External Providers External Provider: OTHER-OTHER Next Contact Date: Service Request Date: Service Type: Resolution: Reviewer: Comments: Coverage Notice Reviewer: [email or web address] Adam Pham Notice Issued Date-Time: 03/08/2020 17:11 Notice Type: Patient Choice Letter Notice Delivered To: Patient Relationship to Patient: Self Calendering Supervisor Name: Marshal Cunningham Delivery Method: HAND - Hand Delivered Shyay Days: Prior Verbal Notification: Recipient Understood Notice: Yes Recipient Signature: Yes Med Rec Note Co-signed by Attending: Coverage Notice Comment: [facility] Last DP export: 03/08/20 4:30 p Patient Name: MARSHAL CUNNINGHAM Page [phone] at 1156 All edits/amendments must be made on the electronic document DICTATION DATE: 03/09/20 1155 HEAD OF MEASUREMENT & INSIGHTS: RENÉ 03/09/20 1155 RPT#: [id number] DC DATE: STATUS: ADM IN [facility] [address] [place] [address] END OF REPORT
--- NOTE | 2020-03-09 12:23 | MORECARE ---
CASE MANAGEMENT DISCHARGE SUMMARY PATIENT: MARSHAL CUNNINGHAM UNIT: [id number] ADM DATE: 03/07/20 AGE: 84 : 35 SEX: F ROOM/BED: D.1207 AUTHOR: TIFFANIE,DOC PHYSICIAN: REFERRING PHYSICIAN: CINTHYA BOLIVAR DO DATE OF SERVICE: 03/09/20 Discharge Plan Patient Name: MARSHAL CUNNINGHAM Facility: [facility]:[place] : 1935 Planned Disposition: Outpatient PT\OT Anticipated Discharge Date: 03/09/20 Discharge Date: Expected LOS: 2 Initial Reviewer: [email or web address] Initial Review Date: 03/07/2020 Generated: 03/09/20 1:22 pm Comments DCP- Discharge Planning Updated by [email or web address]: Gricel Pham on 03/09/20 11:[address] Verified with patient that she plans to have OP therapy @[facility] and she has transportation to appointments. CM contacted [facility] and obtained an appointment 03/10/20 @1300. Copy of the order provided to patient and faxed to [facility] @[phone]. Patient states her son and [id number] are visiting and will stay as long as needed. DCP- Discharge Planning Updated by [email or web address]: Gricel Pham on 03/08/20 4:[address] CM revisited patient to verify that she still wanted to have OP Therapy at [facility]. DCP- Discharge Planning Updated by [email or web address]: Gricel Pham on 03/07/20 5:[address] CM met with patient to discuss initial discharge planning. Patient is in agreement to proceed. Patient reports that she lives at home independently with her , Erick Cunningham [phone]. Patient is alert/oriented. PCP: Dr. Rodgers. Emergency contact: Charisse Buitrago (friend) [phone]. [facility]acy[facility] . HHS: None. DME: Walker, CPM, BSC (to be delivered).Patient's choice for Therapy is at [facility] ([phone]), with Dr. Rodgers office. 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 CM discussed the availability of HH, Rehab, SNF, OP Therapy, DME services. Patient states she feels safe returning to previous environment. Patient denies hospitalization within the past 30 days. Patient denies the use of community resources DIRECTOR PROSPECT. Transportation at time of discharge: Friend or spouse. CM will follow and assist with DC needs/plans PRN. CM will contact Therapy 03/08. Coverage Notice Reviewer: [email or web address] Adam Pham Notice Issued Date-Time: 03/08/2020 17:11 Notice Type: Patient Choice Letter Notice Delivered To: Patient Relationship to Patient: Self Translator Name: Marshal Cunningham Delivery Method: HAND - Hand Delivered Shayy Days: Prior Verbal Notification: Recipient Understood Notice: Yes Recipient Signature: Yes Med Rec Note Co-signed by Attending: Coverage Notice Comment: [facility] Last DP export: 03/09/20 10:56 a Patient Name: MARSHAL CUNNINGHAM Page [phone] at 1223 All edits/amendments must be made on the electronic document DICTATION DATE: 03/09/20 1223 PSYCHIATRY TEACHER: RENÉ 03/09/20 1223 RPT#: [id number] DC DATE: STATUS: ADM IN [facility] [address] [place] [address] END OF REPORT
[2020-03-09 16:49] VITALS: BP 153/63
--- NOTE | 2020-03-09 17:46 | MORECARE ---
CASE MANAGEMENT DISCHARGE SUMMARY PATIENT: MARSHAL CUNNINGHAM UNIT: [id number] ADM DATE: 03/07/20 AGE: 84 : 35 SEX: F ROOM/BED: D.1207 AUTHOR: TIFFANIE,DOC PHYSICIAN: REFERRING PHYSICIAN: CINTHYA BOLIVAR DO DATE OF SERVICE: 03/09/20 Discharge Plan Patient Name: MARSHAL CUNNINGHAM Facility: [facility]:[place] : 1935 Planned Disposition: Outpatient PT\\OT Anticipated Discharge Date: 03/09/20 Discharge Date: Expected LOS: 2 Initial Reviewer: [email or web address] Initial Review Date: 03/07/2020 Generated: 03/09/20 6:46 pm Comments DCP- Discharge Planning Updated by [email or web address]: Gricel Pham on 03/09/20 4:[address] PT is recommending Inpatient Rehab. Patient strongly refuses rehab. CM has discussed HHS, OP Therapy, SNF, Rehab. Patient states "I'm 85 years old, how much better will my legs work!" Instructed patient that her safety is the concern. Patient states she will consider HHS. CM provided a list of HH agencies. Patient states she will talk to Dr. Rodgers, her and son before she makes a decision. CM will re-visit patient tomorrow. Verified with patient that she plans to have OP therapy @[facility] and she has transportation to appointments. CM contacted [facility] and obtained an appointment 03/10/20 @1300. Copy of the order provided to patient and faxed to [facility] @[phone]. Patient states her son and [id number] are visiting and will stay as long as needed. DCP- Discharge Planning Updated by [email or web address]: Gricel Pham on 03/08/20 4:[address] CM revisited patient to verify that she still wanted to have OP Therapy at [facility]. DCP- Discharge Planning Updated by [email or web address]: Gricel Pham on 03/07/20 5:[address] CM met with patient to discuss initial discharge planning. Patient is in agreement to proceed. Patient reports that she lives at home independently with her , Erick Cunningham [phone]. Patient is alert/oriented. PCP: Dr. Rodgers. Emergency contact: Charisse Buitrago (friend) [phone]. [facility] HHS: None. DME: Walker, CPM, BSC (to be delivered).Patient's choice for Therapy is at [facility] ([phone]), with Dr. Rodgers office. 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 CM discussed the availability of HH, Rehab, SNF, OP Therapy, DME services. Patient states she feels safe returning to previous environment. Patient denies hospitalization within the past 30 days. Patient denies the use of community resources ELECTRONIC SCANNER OPERATOR. Transportation at time of discharge: Friend or spouse. CM will follow and assist with DC needs/plans PRN. CM will contact Therapy 03/08. Coverage Notice Reviewer: [email or web address] Adam Pham Notice Issued Date-Time: 03/08/2020 17:11 Notice Type: Patient Choice Letter Notice Delivered To: Patient Relationship to Patient: Self Escalator Mechanic Name: Marshal Cunningham Delivery Method: HAND - Hand Delivered Shayy Days: Prior Verbal Notification: Recipient Understood Notice: Yes Recipient Signature: Yes Med Rec Note Co-signed by Attending: Coverage Notice Comment: [facility] OP Therapy Last DP export: 03/09/20 11:23 a Patient Name: MARSHAL CUNNINGHAM Page [phone] at 1746 All edits/amendments must be made on the electronic document DICTATION DATE: 03/09/201745 TELEPHONE ADVICE NURSE: RENÉ 03/09/201745 RPT#: [id number] DC DATE: STATUS: ADM IN [facility] [address] [place] [address] END OF REPORT
[2020-03-09 20:00] VITALS: BP 129/57
--- NOTE | 2020-03-09 20:00 | NUR ---
ALERT RESTING IN BED, SEE SHIFT ASSESSMENT, CPM IN USE, DENIES PAIN OR NEEDS AT THIS TIME, CALL LIGHT IN REACH
[2020-03-10 04:00] VITALS: BP 107/56
--- NOTE | 2020-03-10 07:15 | NUR ---
PT RESTING QUIETLY IN BED WITH CPM IN PLACE TO RIGHT LOWER EXTREMITY. EXTREMITY WARM TO TOUCH, ABLE TO MOVE TOES. REPORTS PAIN 3/10 AT THIS [place]. SALINE LOC NOTED TO RIGHT AC, SITE WITHOUT REDNESS OR EDEMA. EASILY FLUSHES. DENIES FURTHER NEEDS AT THIS TIME. CL WITHIN REACH. ENCOURAGED TO CALL WITH NEEDS. CONTINUE POC
[2020-03-10 08:40] VITALS: BP 131/56
[2020-03-10] MEDS ORDERED: ELIQUIS2.5 MG PO (10:12)
[2020-03-10] MEDS ORDERED: HYDROCODON-ACE1 EA10 PO (10:13)
[2020-03-10] MEDS ORDERED: CIPRO500 MG PO (10:15)
--- NOTE | 2020-03-10 10:51 | MORECARE ---
CASE MANAGEMENT DISCHARGE SUMMARY PATIENT: MARSHAL CUNNINGHAM UNIT: [id number] ADM DATE: 03/07/20 AGE: 84 : 35 SEX: F ROOM/BED: D.1207 AUTHOR: TIFFANIE,DOC PHYSICIAN: REFERRING PHYSICIAN: CINTHYA BOLIVAR DO DATE OF SERVICE: 03/10/20 Discharge Plan Patient Name: MARSHAL CUNNINGHAM Facility: [facility]:[place] : 1935 Planned Disposition: Outpatient PT\\OT Anticipated Discharge Date: 03/09/20 Discharge Date: Expected LOS: 2 Initial Reviewer: [email or web address] Initial Review Date: 03/07/2020 Generated: 03/10/20 11:50 am Comments DCP- Discharge Planning Updated by [email or web address]: Gricel Pham on 03/09/20 4:[address] PT is recommending Inpatient Rehab. Patient strongly refuses rehab. CM has discussed HHS, OP Therapy, SNF, Rehab. Patient states "I'm 85 years old, how much better will my legs work!" Instructed patient that her safety is the concern. Patient states she will consider HHS. CM provided a list of HH agencies. Patient states she will talk to Dr. Rodgers, her and son before she makes a decision. CM will re-visit patient tomorrow. Verified with patient that she plans to have OP therapy @[facility] and she has transportation to appointments. CM contacted [facility] and obtained an appointment 03/10/20 @1300. Copy of the order provided to patient and faxed to [facility] @[phone]. Patient states her son and [id number] are visiting and will stay as long as needed. DCP- Discharge Planning Updated by [email or web address]: Gricel Pham on 03/08/20 4:[address] CM revisited patient to verify that she still wanted to have OP Therapy at [facility]. DCP- Discharge Planning Updated by [email or web address]: Gricel Pham on 03/07/20 5:[address] CM met with patient to discuss initial discharge planning. Patient is in agreement to proceed. Patient reports that she lives at home independently with her , Erick Cunningham [phone]. Patient is alert/oriented. PCP: Dr. Rodgers. Emergency contact: Charisse Buitrago (friend) [phone]. [facility]. HHS: None. DME: Walker, CPM, BSC (to be delivered).Patient's choice for Therapy is at [facility] ([phone]), with Dr. Rodgers office. 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 CM discussed the availability of HH, Rehab, SNF, OP Therapy, DME services. Patient states she feels safe returning to previous environment. Patient denies hospitalization within the past 30 days. Patient denies the use of community resources TRANSITION MGR. Transportation at time of discharge: Friend or spouse. CM will follow and assist with DC needs/plans PRN. CM will contact Therapy 03/08. External Providers External Provider: [facility] Next Contact Date: Service Request Date: Service Type: Resolution: Reviewer: Comments: Coverage Notice Reviewer: [email or web address] Adam Pham Notice Issued Date-Time: 03/08/2020 17:11 Notice Type: Patient Choice Letter Notice Delivered To: Patient Relationship to Patient: Self Rating Examiner Name: Marshal Cunningham Delivery Method: HAND - Hand Delivered Shayy Days: Prior Verbal Notification: Recipient Understood Notice: Yes Recipient Signature: Yes Med Rec Note Co-signed by Attending: Coverage Notice [facility] Last DP export: 03/09/20 4:46 p Patient Name: MARSHAL CUNNINGHAM Page [phone] at 1051 All edits/amendments must be made on the electronic document DICTATION DATE: 03/10/20 1050 CANTILEVER CRANE OPERATOR: RENÉ 03/10/20 1050 RPT#: [id number] DC DATE: STATUS: ADM IN [facility] [address] [place] [address] END OF REPORT
--- NOTE | 2020-03-10 10:59 | MORECARE ---
CASE MANAGEMENT DISCHARGE SUMMARY PATIENT: MARSHAL CUNNINGHAM UNIT: [id number] ADM DATE: 03/07/20 AGE: 84 : 35 SEX: F ROOM/BED: D.1207 AUTHOR: TIFFANIE,DOC PHYSICIAN: REFERRING PHYSICIAN: CINTHYA BOLIVAR DO DATE OF SERVICE: 03/10/20 Discharge Plan Patient Name: MARSHAL CUNNINGHAM Facility: [facility]:[place] : 1935 Planned Disposition: Outpatient PT\\OT Anticipated Discharge Date: 03/09/20 Discharge Date: Expected LOS: 2 Initial Reviewer: [id number] Initial Review Date: 03/07/2020 Generated: 03/10/20 11:58 am Comments DCP- Discharge Planning Updated by [email or web address]: Gricel Pham on 03/10/20 9:[address] Patient re-visited regarding DC needs. Patient and family request [facility]. Contacted Zohreh with [facility], faxed required information with HH order. DCP- Discharge Planning Updated by [id number]: Gricel Pham on 03/09/20 4:[address] PT is recommending Inpatient Rehab. Patient strongly refuses rehab. CM has discussed HHS, OP Therapy, SNF, Rehab. Patient states "I'm 85 years old, how much better will my legs work!" Instructed patient that her safety is the concern. Patient states she will consider HHS. CM provided a list of HH agencies. Patient states she will talk to Dr. Rodgers, her and son before she makes a decision. CM will re-visit patient tomorrow. Verified with patient that she plans to have OP therapy @[facility] and she has transportation to appointments. CM contacted [facility] and obtained an appointment 03/10/20 @1300. Copy of the order provided to patient and faxed to [facility] @[phone]. Patient states her son and [id number] are visiting and will stay as long as needed. DCP- Discharge Planning Updated by [id number]: Gricel Pham on 03/08/20 4:[address] CM revisited patient to verify that she still wanted to have OP Therapy at [facility]. DCP- Discharge Planning Updated by [id number]: Gricel Pham on 03/07/20 5:[address] CM met with patient to discuss initial discharge planning. Patient is in agreement to proceed. Patient reports that she lives at home independently with her , Erick Cunningham [phone]. Patient is alert/oriented. PCP: Dr. Rodgers. Emergency contact: Charisse Buitrago (friend) [phone]. [facility]. HHS: None. DME: Walker, CPM, BSC (to be delivered).Patient's choice for Therapy is at [facility] [phone]), with Dr. Rodgers office. 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 CM discussed the availability of HH, Rehab, SNF, OP Therapy, DME services. Patient states she feels safe returning to previous environment. Patient denies hospitalization within the past 30 days. Patient denies the use of community resources GEAR MACHINE OPERATOR GENERAL. Transportation at time of discharge: Friend or spouse. CM will follow and assist with DC needs/plans PRN. CM will contact Therapy 03/08. Coverage Notice Reviewer: [id number] Adam Gricel Vero Notice Issued Date-Time: 03/08/2020 17:11 Notice Type: Patient Choice Letter Notice Delivered To: Patient Relationship to Patient: Self Food Chemist Name: Marshal Cunningham Delivery Method: HAND - Hand Delivered Shayy Days: Prior Verbal Notification: Recipient Understood Notice: Yes Recipient Signature: Yes Med Rec Note Co-signed by Attending: Coverage Notice Comment: [facility] OP Therapy Reviewer: [id number] Adam Pham Notice Issued Date-Time: 03/10/2020 10:54 Notice Type: Patient Choice Letter Notice Delivered To: Patient Relationship to Patient: Self Food Chemist Name: Marshal Cunningham Delivery Method: HAND - Hand Delivered Shayy Days: Prior Verbal Notification: Recipient Understood Notice: Yes Recipient Signature: Yes Med Rec Note Co-signed by Attending: Coverage Notice Comment: America Pedro DP export: 03/10/20 9:51 a Patient Name: MARSHAL CUNNINGHAM Page 90042 at 1059 All edits/amendments must be made on the electronic document DICTATION DATE: 03/10/20 1050 PROGRESSIVE CARE MANAGER: RENÉ 03/10/20 1059 RPT#: [id number] CA DATE: STATUS: ADM IN [facility] [address] [place] [address] END OF REPORT
[2020-03-10 11:47] VITALS: BP 134/69
--- NOTE | 2020-03-10 13:11 | NUR ---
Nutrition Follow-up: Diet: Regular PO intake: 75-100% x all meals since admit Last BM: none recorded since admit. Wt: 225# (03/08/20) Meds noted: D51/2NS@125, prednisone. Labs reviewed. Recommend continue current diet. RD following.
[2020-03-10 16:01] VITALS: BP 132/52
[2020-03-10 20:00] VITALS: BP 134/53
--- NOTE | 2020-03-10 23:09 | NUR ---
ASSESSED AT THE BEGINNING OF THE SHIFT. PT IS ALERT AND ORIENTED, ABLE TO VERBALIZE NEEDS. THERE WAS SWELLING FROM HER IV SITE AND IT WAS REMOVED WITH FIRST WARM APPLIED TO ARM AND THEN ICE AT PATIENTS REQUEST. SHE STATED SHE WAS GOING HOME IN THE MORNING AND DID NOT WANT ANOTHER IV STARTED. LATER SHE CALLED TO HAVE HER ADRIANA HOSE TAKEN OFF HER LEFT LEG DUE TO IT CUTTING INTO HER TOP ANKLE. THERE WERE RED MILLER THERE BUT THEY SHOULD GO AWAY. HER CPM WAS REMOVED AT 2029 AND SHE WAS HAPPY ABOUT THAT. NO OTHER COMPLAINTS VOICED.
[2020-03-11] VITALS: BP 141/55
[2020-03-11 04:00] VITALS: BP 142/48
--- NOTE | 2020-03-11 06:37 | NUR ---
PT HAS RESTED WELL DURING THE NIGHT. THIS MORNING SHE WAS C/O PAIN IN HER KNEE SO AFTER GETTING UP TO THE BEDSIDE COMMODE TO VOID SHE RECEIVED PAIN MEDS ORDERED. SHE IS NOW ON THE CPM.
[2020-03-11 07:18] LABS: BASOPHILS 0.3 % (0-2); EOSINOPHILS 3.6 % (0-7); HEMATOCRIT 33.3 % (36.0-48.0); HEMOGLOBIN 10.8 g/dL (12-16); IMMATURE GRANULOCYTES 0.4 % (0-5); LYMPHOCYTES 32.3 % (15-50); MCH 32.6 pg (26.0-34.0); MCHC 32.4 g/dL (31.0-37.0); MCV 100.6 fL (80.0-100.0); MONOCYTES 9.7 % (2-11); NEUTROPHILS 53.7 % (40-80); PLATELET COUNT 159 10x3/uL (130-400); RBC 3.31 10x6/uL (4.00-5.40); RDW 14.3 % (11.5-14.5)
--- NOTE | 2020-03-11 07:30 | NUR ---
AWAKE AND ALERT. ORIENTED X3. C/O RIGHT KNEE PAIN AT THIS TIME. REQUESTED CPM OFF AT THIS TIME. LUNGS ARE CLEAR BILATERALLY, NO COUGH NOTED. SKIN IS INTACT WITHOUT REDNESS EXCEPT INCISION TO RIGHT KNEE WHICH HAS A DRY INTACT DRESSING IN PLACE. NO IV AT THIS TIME. DENIES NEEDS.
--- NOTE | 2020-03-11 07:30 | NUR ---
AWAKE AND ALERT. ORIENTED X3. C/O RIGHT KNEE PAIN AT THIS TIME. ICE APPLIED TO AREA. WILL GIVE PRN WHEN AVAILABLE. LUNGS ARE CLEAR BILATERALLY, NO COUGH NOTED. SKIN IS INTACT WITHOUT REDNESS EXCEPT INCISION TO RIGHT KNEE WHICH HAS A DRY INTACT DRESSING IN PLACE. NO IV ACCESS AT THIS TIME. CPM OFF FOR NOW PER PATIENT REQUEST. DENIES NEEDS.
[2020-03-11 07:38] LABS: ANION GAP 12.5 mmol/L (8-16); CARBON DIOXIDE 23.1 mmol/L (21.0-32.0); CREATININE - SERUM 1.2 mg/dL (0.6-1.3); POTASSIUM - SERUM 4.6 mmol/L (3.5-5.1)
[2020-03-11 08:10] VITALS: BP 136/65
--- NOTE | 2020-03-11 09:15 | NUR ---
ATE MOST OF BREAKFAST. TOOK AM MEDS WITHOUT DIFFICULTY. REQUESTED AND GIVEN ONE HYDROCODONE PO FOR C/O RIGHT KNEE PAIN.
--- NOTE | 2020-03-11 09:42 | NUR ---
REQUESTED AND GIVEN ONE HYDROCODONE PO FOR C/O RIGHT KNEE PAIN LEVEL 8. WILL MONITOR.
--- NOTE | 2020-03-11 09:45 | NUR ---
AMBULATED IN HALLWAY WITH PT USING RW. REPORTED PAIN IMPROVED WITH ACTIVITY.
--- NOTE | 2020-03-11 10:17 | MORECARE ---
CASE MANAGEMENT DISCHARGE SUMMARY PATIENT: MARSHAL CUNNINGHAM UNIT: [id number] ADM DATE: 03/07/20 AGE: 84 : 35 SEX: F ROOM/BED: D.1207 AUTHOR: TIFFANIE,[place] PHYSICIAN: REFERRING PHYSICIAN: CINTHYA BOLIVAR DO DATE OF SERVICE: 03/11/20 Discharge Plan Patient Name: MARSHAL CUNNINGHAM Facility: [facility]:[place] : 1935 Planned Disposition: Outpatient PT\\OT Anticipated Discharge Date: 03/09/20 Discharge Date: Expected LOS: 2 Initial Reviewer: [email or web address] Initial Review Date: 03/07/2020 Generated: 03/11/20 11:17 am Comments DCP- Discharge Planning Updated by [email or web address]: Demarcus Lozano on 03/11/20 9:[address] Patient Name: MARSHAL CUNNINGHAM Encounter No: [id number] : 1935 Primary Insurance: MEDICARE A & B Anticipated DC Date: 03-09-2020 Planned Disposition: Outpatient PT\\OT External Planned Provider: : DCP follow-up note: Patient in agreement with discharge Patient to DC home with Home Health. Notified [facility] via telephone, , Lidya that patient will DC today. Lidya stated that the patient will be reviewed on Friday. Documents faxed. Case management will follow and assist as needed. Demarcus Lozano DCP- Discharge Planning Updated by [email or web address]: Gricel Pham on 03/10/20 9:[address] Patient re-visited regarding DC needs. Patient and family request [facility]. Contacted Zohreh, with [facility], faxed required information with HH order. DCP- Discharge Planning Updated by [id number]: Gricel Pham on 03/09/20 4:[address] PT is recommending Inpatient Rehab. Patient strongly refuses rehab. CM has discussed HHS, OP Therapy, SNF, Rehab. Patient states "I'm 85 years old, how much better will my legs work!" Instructed patient that her safety is the concern. Patient states she will consider HHS. CM provided a list of HH agencies. Patient states she will talk to Dr. Sami, her and son before she makes a decision. CM will re-visit patient tomorrow. Verified with patient that she plans to have OP therapy @[facility] and she has transportation to appointments. CM contacted [facility] and obtained an appointment 03/10/20 @1300. Copy of the order provided to patient and faxed to [facility] @[phone]. Patient states her son and [id number]-[id number] are visiting and will stay as long as needed. DCP- Discharge Planning Updated by [id number]: Gricel Pham on 03/08/20 4:[address] CM revisited patient to verify that she still wanted to have OP Therapy at [facility]. DCP- Discharge Planning Updated by [id number]: Gricel Pham on 03/07/20 5:[address] CM met with patient to discuss initial discharge planning. Patient is in agreement to proceed. Patient reports that she lives at home independently with her , Erick Cunningham [phone]. Patient is alert/oriented. PCP: Dr. Rodgers. Emergency contact: Charisse Buitrago (friend) [phone]. [facility] HHS: None. DME: Walker, CPM, BSC (to be delivered).Patient's choice for Therapy is at [facility] ([phone]), with Dr. Rodgers office. 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 CM discussed the availability of HH, Rehab, SNF, OP Therapy, DME services. Patient states she feels safe returning to previous environment. Patient denies hospitalization within the past 30 days. 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 Transportation at time of discharge: Friend or spouse. CM will follow and assist with DC needs/plans PRN. CM will contact Therapy 03/08. Coverage Notice Reviewer: [id number] Adam Pham Notice Issued Date-Time: 03/08/2020 17:11 Notice Type: Patient Choice Letter Notice Delivered To: Patient Relationship to Patient: Self Desktop Support Manager Name: Marshal Cunningham Delivery Method: HAND - Hand Delivered Shayy Days: Prior Verbal Notification: Recipient Understood Notice: Yes Recipient Signature: Yes Med Rec Note Co-signed by Attending: Coverage Notice Comment: [facility] OP Therapy Reviewer: [id number] Adam Pham Notice Issued Date-Time: 03/10/2020 10:54 Notice Type: Patient Choice Letter Notice Delivered To: Patient Relationship to Patient: Self Desktop Support Manager Name: Marshal Cunningham Delivery Method: HAND - Hand Delivered Shayy Days: Prior Verbal Notification: Recipient Understood Notice: Yes Recipient Signature: Yes Med Rec Note Co-signed by Attending: Coverage Notice Comment: America ZURITA Last DP export: 03/10/20 9:59 a Patient Name: MARSHAL CUNNINGHAM Page 00174 at 1017 All edits/amendments must be made on the electronic document DICTATION DATE: 03/11/20 1017 ACQUISITIONS EDITOR: RENÉ 03/11/20 1017 RPT#: [id number] DC DATE: STATUS: ADM IN [facility] [address] [place] [address] END OF REPORT
--- NOTE | 2020-03-11 10:39 | NUR ---
AMBULATED IN HALLWAY WITH RW. DENIES NEEDS.
--- NOTE | 2020-03-11 11:30 | NUR ---
DICSHARGED TO HOME AMBULATORY WITH FAMILY. DISCHARGE INSTRUCTIONS GIVEN BOTH VERBALLY AND WRITTEN. ALL QUESTIONS ANSWERED. PATIENT AND FAMILY VERBALIZED UNDERSTANDING OF SAME. NEEDED PRESCRIPTIONS GIVEN TO PATIENT.ALL BELONGINGS WITH PATIENT.
--- NOTE | 2020-03-11 17:47 | MORECARE ---
CASE MANAGEMENT DISCHARGE SUMMARY PATIENT: MARSHAL CUNNINGHAM UNIT: [id number] ADM DATE: 03/07/20 AGE: 84 : 35 SEX: F ROOM/BED: D.1207 AUTHOR: TIFFANIE,[place] PHYSICIAN: REFERRING PHYSICIAN: CINTHYA BOLIVAR DO DATE OF SERVICE: 03/11/20 Discharge Plan Patient Name: MARSHAL CUNNINGHAM Facility: [facility]:[place] : 1935 Planned Disposition: Home with Home Health Anticipated Discharge Date: 03/09/20 Discharge Date: 03/11/2020 Expected LOS: 2 Initial Reviewer: [email or web address] Initial Review Date: 03/07/2020 Generated: 03/11/20 6:46 pm Comments DCP- Discharge Planning Updated by [email or web address]: Demarcus Lozano on 03/11/20 9:[address] Patient Name: MARSHAL CUNNINGHAM Encounter No: [id number] : 1935 Primary Insurance: MEDICARE A & B Anticipated DC Date: 03-09-2020 Planned Disposition: Outpatient PT\\OT External Planned Provider: : DCP follow-up note: Patient in agreement with discharge Patient to DC home with Home Health. Notified [facility] via telephone, Lidya that patient will DC today. Lidya stated that the patient will be reviewed on Friday. Documents faxed. Case management will follow and assist as needed. Demarcus Lozano DCP- Discharge Planning Updated by [id number]: Gricel Pham on 03/10/20 9:[address] Patient re-visited regarding DC needs. Patient and family request [facility]. Contacted Zohreh, with [facility], faxed required information with order. DCP- Discharge Planning Updated by [email or web address]: Gricel Pham on 03/09/20 4:[address] PT is recommending Inpatient Rehab. Patient strongly refuses rehab. CM has discussed HHS, OP Therapy, SNF, Rehab. Patient states "I'm 85 years old, how much better will my legs work!" Instructed patient that her safety is the concern. Patient states she will consider HHS. CM provided a list of HH agencies. Patient states she will talk to Dr. Rodgers, her and son before she makes a decision. CM will re-visit patient tomorrow. Verified with patient that she plans to have OP therapy @[facility] and she has transportation to appointments. CM contacted [facility] and obtained an appointment 03/10/20 @1300. Copy of the order provided to patient and faxed to [facility] @[phone]. Patient states her son and [id number] are visiting and will stay as long as needed. DCP- Discharge Planning Updated by [id number]: Gricel Pham on 03/08/20 4:[address] CM revisited patient to verify that she still wanted to have OP Therapy at [facility]. DCP- Discharge Planning Updated by [id number]: Gricel Pham on 03/07/20 5:[address] CM met with patient to discuss initial discharge planning. Patient is in agreement to proceed. Patient reports that she lives at home independently with her , Erick Cunningham [phone]. Patient is alert/oriented. PCP: Dr. Rodgers. Emergency contact: Charisse Buitrago (friend) [phone]. Pharmacy: [facility] HHS: None. DME: Walker, CPM, BSC (to be delivered).Patient's choice for Therapy is at [facility] ([phone]), with Dr. Rodgers office. 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 CM discussed the availability of HH, Rehab, SNF, OP Therapy, DME services. Patient states she feels safe returning to previous environment. Patient denies hospitalization within the past 30 days. 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 Transportation at time of discharge: Friend or spouse. CM will follow and assist with DC needs/plans PRN. CM will contact Therapy 03/08. DCPIA - Discharge Planning Initial Assessment Updated by [id number]: Demarcus Lozano on 03/11/20 5:45 pm * Is the patient Alert and Oriented? Yes * How many steps to enter\\exit or inside your home? 0/0 * PCP Dr. Rodgers * Pharmacy [facility] [address] * Preadmission Environment Home with Family * ADLs Independent * List name and contact numbers for known caregivers / representatives who currently or will assist patient after discharge: Spouse - Colin Cunningham [phone] * Verbal permission to speak to the caregivers and representatives has been obtained from the patient. Yes * Community resources currently utilized None * Please name any agencies selected above. n/a * Additional services required to return to the preadmission environment? Yes * Can the patient safely return to the preadmission environment? Yes * Has this patient been hospitalized within the prior 30 days at any hospital? No Coverage Notice Reviewer: [id number] Adam Pham Notice Issued Date-Time: 03/08/2020 17:11 Notice Type: Patient Choice Letter Notice Delivered To: Patient Relationship to Patient: Self Box Press Operator Name: Marshal Cunningham Delivery Method: HAND - Hand Delivered Shayy Days: Prior Verbal Notification: Recipient Understood Notice: Yes Recipient Signature: Yes Med Rec Note Co-signed by Attending: Coverage Notice Comment: [facility] OP Therapy Reviewer: [id number] Adam Pham Notice Issued Date-Time: 03/10/2020 10:54 Notice Type: Patient Choice Letter Notice Delivered To: Patient Relationship to Patient: Self Box Press Operator Name: Marshal Cunningham Delivery Method: HAND - Hand Delivered Shayy Days: Prior Verbal Notification: Recipient Understood Notice: Yes Recipient Signature: Yes Med Rec Note Co-signed by Attending: Coverage Notice Comment: America ZURITA Last DP export: 03/11/20 9:17 a Patient Name: MARSHAL CUNNINGHAM Page 09742 at 1747 All edits/amendments must be made on the electronic document DICTATION DATE: 03/11/201746 WORD PROCESSING SUPERVISOR: RENÉ 03/11/201746 RPT#: [id number] DC DATE:03/11/20 STATUS: DIS IN [facility] [address] [place] [address] END OF REPORT
--- NOTE | 2020-03-13 08:49 | MORECARE ---
CASE MANAGEMENT DISCHARGE SUMMARY PATIENT: MARSHAL CUNNINGHAM UNIT: [id number] ADM DATE: 03/07/20 AGE: 84 : 35 SEX: F ROOM/BED: D.1207 AUTHOR: TIFFANIE,[place] PHYSICIAN: REFERRING PHYSICIAN: CINTHYA BOLIVAR DO DATE OF SERVICE: 03/13/20 Discharge Plan Patient Name: MARSHAL CUNNINGHAM Facility: [facility]:[place] : 1935 Planned Disposition: Home with Home Health Anticipated Discharge Date: 03/09/20 Discharge Date: 03/11/2020 Expected LOS: 2 Initial Reviewer: [id number] Initial Review Date: 03/07/2020 Generated: 03/13/20 9:48 am Comments DCP- Discharge Planning Updated by [email or web address]: Demarcus Lozano on 03/11/20 9:[address] Patient Name: MARSHAL CUNNINGHAM Encounter No: [id number] : 1935 Primary Insurance: MEDICARE A & B Anticipated DC Date: 03-09-2020 Planned Disposition: Outpatient PT\\OT External Planned Provider: : DCP follow-up note: Patient in agreement with discharge Patient to DC home with Home Health. Notified [facility] via telephone, , Lidya that patient will DC today. Lidya stated that the patient will be reviewed on Friday. Documents faxed. Case management will follow and assist as needed. Demarcus Lozano DCP- Discharge Planning Updated by [email or web address]: Gricel Pham on 03/10/20 9:[address] Patient re-visited regarding DC needs. Patient and family request [facility]. Contacted Zohreh, with [facility], faxed required information with order. DCP- Discharge Planning Updated by [email or web address]: Gricel Pham on 03/09/20 4:[address] PT is recommending Inpatient Rehab. Patient strongly refuses rehab. CM has discussed HHS, OP Therapy, SNF, Rehab. Patient states "I'm 85 years old, how much better will my legs work!" Instructed patient that her safety is the concern. Patient states she will consider HHS. CM provided a list of HH agencies. Patient states she will talk to Dr. Rodgers, her and son before she makes a decision. CM will re-visit patient tomorrow. Verified with patient that she plans to have OP therapy @[facility] and she has transportation to appointments. CM contacted [facility] and obtained an appointment 03/10/20 @1300. Copy of the order provided to patient and faxed to [facility] @[phone]. Patient states her son and [id number] are visiting and will stay as long as needed. DCP- Discharge Planning Updated by [email or web address]: Gricel Pham on 03/08/20 4:[address] CM revisited patient to verify that she still wanted to have OP Therapy at [facility]. DCP- Discharge Planning Updated by [id number]: Gricel Pham on 03/07/20 5:[address] CM met with patient to discuss initial discharge planning. Patient is in agreement to proceed. Patient reports that she lives at home independently with her , Erick Cunningham [phone]. Patient is alert/oriented. PCP: Dr. Rodgers. Emergency contact: Charisse Buitrago (friend) [phone]. Pharmacy: [facility] HHS: None. DME: Walker, CPM, BSC (to be delivered).Patient's choice for Therapy is at [facility] ([phone]), with Dr. Rodgers office. 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 CM discussed the availability of HH, Rehab, SNF, OP Therapy, DME services. Patient states she feels safe returning to previous environment. Patient denies hospitalization within the past 30 days. Patient denies the use of community resources HEALTHCARE MARKETER. Transportation at time of discharge: Friend or spouse. CM will follow and assist with DC needs/plans PRN. CM will contact Therapy 03/08. DCPIA - Discharge Planning Initial Assessment Updated by [email or web address]: Demarcus Lozano on 03/11/20 5:45 pm * Is the patient Alert and Oriented? Yes * How many steps to enter\\exit or inside your home? 0/0 * PCP Dr. Rodgers * Pharmacy [facility] [address] * Preadmission Environment Home with Family * ADLs Independent * List name and contact numbers for known caregivers / representatives who currently or will assist patient after discharge: Spouse - Colin Cunningham [phone] * Verbal permission to speak to the caregivers and representatives has been obtained from the patient. Yes * Community resources currently utilized None * Please name any agencies selected above. n/a * Additional services required to return to the preadmission environment? Yes * Can the patient safely return to the preadmission environment? Yes * Has this patient been hospitalized within the prior 30 days at any hospital? No Coverage Notice Reviewer: [id number] Adma Pham Notice Issued Date-Time: 03/08/2020 17:11 Notice Type: Patient Choice Letter Notice Delivered To: Patient Relationship to Patient: Self Boil Off Worker Name: Marshal Cunningham Delivery Method: HAND - Hand Delivered Shayy Days: Prior Verbal Notification: Recipient Understood Notice: Yes Recipient Signature: Yes Med Rec Note Co-signed by Attending: Coverage Notice Comment: [facility] OP Therapy Reviewer: [id number] Adam Pham Notice Issued Date-Time: 03/10/2020 10:54 Notice Type: Patient Choice Letter Notice Delivered To: Patient Relationship to Patient: Self Boil Off Worker Name: Marshal Cunningham Delivery Method: HAND - Hand Delivered Shayy Days: Prior Verbal Notification: Recipient Understood Notice: Yes Recipient Signature: Yes Med Rec Note Co-signed by Attending: Coverage Notice Comment: [place] [facility] Reviewer: [id number] Adam Lozano Notice Issued Date-Time: 03/11/2020 9:50 Notice Type: Patient Choice Letter Notice Delivered To: Patient Relationship to Patient: Self Boil Off Worker Name: Delivery Method: HAND - Hand Delivered Shayy Days: Prior Verbal Notification: Recipient Understood Notice: Yes Recipient Signature: Yes Med Rec Note Co-signed by Attending: Coverage Notice Comment: [place] [facility] Reviewer: [email or web address] Adam Lozano Notice Issued Date-Time: 03/11/2020 9:50 Notice Type: IM Discharge Notice Notice Delivered To: Patient Relationship to Patient: Self Boil Off Worker Name: Delivery Method: HAND - Hand Delivered Shayy Days: Prior Verbal Notification: Recipient Understood Notice: Yes Recipient Signature: Yes Med Rec Note Co-signed by Attending: Coverage Notice Comment: DC IMM delivered, explained, signed by the patient, and placed in chart. Signed form also left with the patient. Last DP export: 03/11/20 4:47 p Patient Name: MARSHAL CUNNINGHAM Page [phone] at 0849 All edits/amendments must be made on the electronic document DICTATION DATE: 03/13/20847 FUEL HOUSE ATTENDANT: RENÉ 03/13/2048 RPT#: [id number] DC DATE:03/11/20 STATUS: DIS IN [facility] [address] [place] [address] END OF REPORT
--- NOTE | 2020-03-13 09:24 | MORECARE ---
CASE MANAGEMENT DISCHARGE SUMMARY PATIENT: MARSHAL CUNNINGHAM UNIT: [id number] ADM DATE: 03/07/20 AGE: 84 : 35 SEX: F ROOM/BED: D.1207 AUTHOR: TIFFANIE,[place]LAND[place] PHYSICIAN: REFERRING PHYSICIAN: CINTHYA BOLIVAR DO DATE OF SERVICE: 03/13/20 Discharge Plan Patient Name: MARSHAL CUNNINGHAM Facility: [facility]:[place] : 1935 Planned Disposition: Home with Home Health Anticipated Discharge Date: 03/09/20 Discharge Date: 03/11/2020 Expected LOS: 2 Initial Reviewer: [id number] Initial Review Date: 03/07/2020 Generated: 03/13/20 10:23 am Comments DCP- Discharge Planning Updated by [email or web address]: Demarcus Lozano on 03/11/20 9:[address] Patient Name: MARSHAL CUNNINGHAM Encounter No: [id number] : 1935 Primary Insurance: MEDICARE A & B Anticipated DC Date: 03-09-2020 Planned Disposition: Outpatient PT\\OT External Planned Provider: : DCP follow-up note: Patient in agreement with discharge Patient to DC home with Home Health. Notified [facility] via telephone, , Lidya that patient will DC today. Lidya stated that the patient will be reviewed on Friday. Documents faxed. Case management will follow and assist as needed. Demarcus Lozano DCP- Discharge Planning Updated by [email or web address]: Gricel Pham on 03/10/20 9:[address] Patient re-visited regarding DC needs. Patient and family request [facility]. Contacted Zohreh, with [facility], faxed required information with order. DCP- Discharge Planning Updated by [email or web address]: Gricel Pham on 03/09/20 4:[address] PT is recommending Inpatient Rehab. Patient strongly refuses rehab. CM has discussed HHS, OP Therapy, SNF, Rehab. Patient states "I'm 85 years old, how much better will my legs work!" Instructed patient that her safety is the concern. Patient states she will consider HHS. CM provided a list of HH agencies. Patient states she will talk to Dr. Rodgers, her and son before she makes a decision. CM will re-visit patient tomorrow. Verified with patient that she plans to have OP therapy @[facility] and she has transportation to appointments. CM contacted [facility] and obtained an appointment 03/10/20 @1300. Copy of the order provided to patient and faxed to [facility] @[phone]. Patient states her son and [id number] are visiting and will stay as long as needed. DCP- Discharge Planning Updated by [email or web address]: Gricel Pham on 03/08/20 4:[address] CM revisited patient to verify that she still wanted to have OP Therapy at [facility]. DCP- Discharge Planning Updated by [email or web address]: Gricel Pham on 03/07/20 5:[address] CM met with patient to discuss initial discharge planning. Patient is in agreement to proceed. Patient reports that she lives at home independently with her , Erick Cunningham [phone]. Patient is alert/oriented. PCP: Dr. Rodgers. Emergency contact: Charisse Buitrago (friend) [phone]. Pharmacy: [address] HHS: None. DME: Walker, CPM, B[employer] (to be delivered).Patient's choice for Therapy is at [facility] [phone]), with Dr. Rodgers office. 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 CM discussed the availability of HH, Rehab, SNF, OP Therapy, DME services. Patient states she feels safe returning to previous environment. Patient denies hospitalization within the past 30 days. 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 Transportation at time of discharge: Friend or spouse. CM will follow and assist with DC needs/plans PRN. CM will contact Therapy 03/08. DCPIA - Discharge Planning Initial Assessment Updated by [id number]: Demarcus Lozano on 03/11/20 5:45 pm * Is the patient Alert and Oriented? Yes * How many steps to enter\\exit or inside your home? 0/0 * PCP Dr. Rodgers * Pharmacy [facility] [address] * Preadmission Environment Home with Family * ADLs Independent * List name and contact numbers for known caregivers / representatives who currently or will assist patient after discharge: Spouse - Colin Cunningham [phone] * Verbal permission to speak to the caregivers and representatives has been obtained from the patient. Yes * Community resources currently utilized None * Please name any agencies selected above. n/a * Additional services required to return to the preadmission environment? Yes * Can the patient safely return to the preadmission environment? Yes * Has this patient been hospitalized within the prior 30 days at any hospital? No Coverage Notice Reviewer: [id number] Adam Lozano Notice Issued Date-Time: 03/11/2020 9:50 Notice Type: IM Discharge Notice Notice Delivered To: Patient Relationship to Patient: [employer] Representative Name: Delivery Method: HAND - Hand Delivered Shayy Days: Prior Verbal Notification: Recipient Understood Notice: Yes Recipient Signature: Yes Med Rec Note Co-signed by Attending: Coverage Notice Comment: DC IMM delivered, explained, signed by the patient, and placed in chart. Signed form also left with the patient. Reviewer: [id number] Adam Lozano Notice Issued Date-Time: 03/11/2020 9:50 Notice Type: Patient Choice Letter Notice Delivered To: Patient Relationship to Patient: [employer] Representative Name: Delivery Method: HAND - Hand Delivered Shayy Days: Prior Verbal Notification: Recipient Understood Notice: Yes Recipient Signature: Yes Med Rec Note Co-signed by Attending: Coverage Notice Comment: [place] ZURITA Reviewer: [id number] Adam Pham Notice Issued Date-Time: 03/10/2020 10:54 Notice Type: Patient Choice Letter Notice Delivered To: Patient Relationship to Patient: [employer] Representative Name: Marshal Cunningham Delivery Method: HAND - Hand Delivered Shayy Days: Prior Verbal Notification: Recipient Understood Notice: Yes Recipient Signature: Yes Med Rec Note Co-signed by Attending: Coverage Notice Comment: [place] [facility] Reviewer: [id number] Adam Pham Notice Issued Date-Time: 03/08/2020 17:11 Notice Type: Patient Choice Letter Notice Delivered To: Patient Relationship to Patient: [employer] Representative Name: Marshal Cunningham Delivery Method: HAND - Hand Delivered Shayy Days: Prior Verbal Notification: Recipient Understood Notice: Yes Recipient Signature: Yes Med Rec Note Co-signed by Attending: Coverage Notice Comment: [facility] Last DP export: 03/13/20 7:49 a Patient Name: MARSHAL CUNNINGHAM Page [id number] at 0924 All edits/amendments must be made on the electronic document DICTATION DATE: 03/13/20922 SAMPLE SAWYER: RENÉ 03/13/20922 RPT#: [id number] DC DATE:03/11/20 STATUS: DIS IN [facility] [address] [place] [address] END OF REPORT
== END 2020-03-11 11:30 | disposition home health service (06) | DRG 470 ==
LOC: D.SDCHOLD 03-01 10:00 → D.M3 03-07 10:55 → D.SDCHOLD 03-07 10:55 → D.M3 03-07 13:23
PROVIDERS: Family Medicine; ADMIT Orthopaedic Surgery; ATTEND Orthopaedic Surgery
PROC: 0SRC0J9 Replacement of Right Knee Joint with Synthetic Substitute, Cemented, Open Approach (ICD-10-PCS; principal; 2020-03-07 12:45)
DX: M17.11 Unilateral primary osteoarthritis, right knee (principal); N39.0 Urinary tract infection, site not specified; I10 Essential (primary) hypertension; G89.29 Other chronic pain; M54.9 Dorsalgia, unspecified